=== PATIENT | female | born 1965 | race Two or more races ===

== ENCOUNTER 2019-06-14 16:47 | Emergency (ER) | payer SELFPAY ==
[~2019-06-14] VITALS: Ht 162.6 cm; Wt 104.3 kg
[~2019-06-14 16:47] MED LIST: CEFTIN500 MG ORAL; CLINDAMYCIN HC300 MG ORAL; FLOMAX0.4 MG ORAL; IBUPROFEN600 MG PO; LANTUS100 UNIT/2 SUBQ; METFORMIN HCL1000 M1 ORAL; NORCO 5-325 TA1 EACH ORAL; NORCO 5-325 TA1 EACH PO
--- NOTE | 2019-06-14 17:20 | NUR ---
ED Nurse Note: Patient walked into ED c/o left ankle pain, patient reports she accidentally fell down from a stool and injured herself on 06/12/19. at bedside
[2019-06-14] MEDS ORDERED: HYDROcodone/Acetamin 5/325 tab ORAL ONE (17:30)
--- NOTE | 2019-06-14 17:46 | Emergency Room Report ---
History of Present Illness General Chief Complaint: Lower Extremity Injury Source: Patient (Eva Painter) Present Illness HPI 54-year-old female presents to the emergency department complaining of 8 out of 10 severity pain to the left ankle and foot x2 days status post mechanical trip and fall. Patient reports that landed on her left foot and ankle in the bent position. Patient states she has been able to ambulate but with great pain. Denies any relieving factors at this time denies previous injury to the extremity denies midline neck or back pain did not hit her head or loose consciousness. (Eva Painter) Allergies: Coded Allergies: No Known Allergies (Unverified , 05/11/13) Patient History Past Medical History: see triage record Past Surgical History: none Pertinent Family History: none Last Menstrual Period: 06/07/19 Now: No Reviewed Nursing Documentation: PMH: Agreed; PSxH: Agreed (Eva Painter) Nursing Documentation-PMH Past Medical History: No History, Except For Hx Cardiac Problems: No Hx Asthma: Yes - secondary to obesity Hx Diabetes: Yes Hx Cancer: No Hx Gastrointestinal Problems: Yes Hx Neurological Problems: No (Eva Painter) Review of Systems All Other Systems: negative except mentioned in HPI (Eva Painter) Physical Exam Vital Signs Date Time Temp Pulse Resp B/P (MAP) Pulse Ox O2 Delivery O2 Flow Rate FiO2 06/14/19 16:53 98.1 84 20 156/88 (110) 99 Room Air Sp02 EP Interpretation: reviewed, normal General Appearance: no apparent distress, alert, GCS 15, non-toxic Head: normocephalic, atraumatic Eyes: bilateral eye normal inspection, bilateral eye PERRL ENT: hearing grossly normal, normal voice Neck: full range of motion Respiratory: chest non-tender, lungs clear, normal breath sounds, speaking full sentences Cardiovascular #1: regular rate, rhythm, normal capillary refill Cardiovascular #2: 2+ dorsalis pedis (R), 2+ dorsalis pedis (L) Musculoskeletal: back normal, normal range of motion, tender - lateral aspect of the left foot and ankle, swelling and bruising noted. Neurologic: alert, oriented x3, responsive, motor strength/tone normal, sensory intact, speech normal, grossly normal Psychiatric: judgement/insight normal Skin: Ecchymosis/Bruising - left foot and ankle (Eva Painter) Medical Decision Making PA Attestation Dr. Scott is my supervising Physician whom patient management has been discussed with. (Eva Painter) Diagnostic Impression: Primary Impression: Metatarsal fracture Qualified Codes: S92.352A - Displaced fracture of fifth metatarsal bone, left foot, initial encounter for closed fracture ER Course 54-year-old female presents to the emergency department complaining of 8 out of 10 severity pain to the left ankle and foot x2 days status post mechanical trip and fall. Patient reports that landed on her left foot and ankle in the bent position. Patient states she has been able to ambulate but with great pain. Denies any relieving factors at this time denies previous injury to the extremity denies midline neck or back pain did not hit her head or loose consciousness. Ddx considered but are not limited to Fracture, dislocation, contusion, Sprain/ Strain/Spasm, Vital signs: are WNL, pt. is afebrile H&PE are most consistent with musculoskeletal injury will perform imaging to r/ o fractures/dislocations. ORDERS: - X-ray Left Foot and Ankle 3 views each - POSITIVE FOR 5th METATARSAL FX. - -No Dislocation, or significant soft tissue injury, per preliminary read in ED , and signed by ARVIND Painter, my supervising physician has reviewed, and agrees with my interpretation. ED INTERVENTIONS: - Winona PO -Left Short leg Posterior Splint applied by substation technician. Pt. remains neurovascularly intact. - --Patient is provided with crutches and instructed on their use DISCHARGE: At this time pt. is stable for d/c to home. Will provide printed patient care instructions, and any necessary prescriptions. Care plan and follow up instructions have been discussed with the patient prior to discharge. (Eva Painter) Other X-Ray Diagnostic Results Other X-Ray Diagnostic Results : X-Ray ordered: Left Foot # of Views/Limited Vs Complete: 3 View Indication: Pain EP Interpretation: Yes PA Xray: Interpretation reviewed, by supervising MD, and agrees with findings. Interpretation: no dislocation, no soft tissue swelling, other - 5th metatarsal fx- mildly displaced Impression: Other - abnormal Electronically Signed by: Eva Painter PA-C (Eva Painter) Other X-Ray Diagnostic Results : Electronically Signed by: P A documentation of Xray reviewed by me and is accurate, Reza Scott MD (Reza Scott MD) Last Vital Signs Date Time Temp Pulse Resp B/P (MAP) Pulse Ox O2 Delivery O2 Flow Rate FiO2 06/14/19 16:53 98.1 84 20 156/88 (110) 99 Room Air (Eva Painter) Disposition: HOME, SELF-CARE Condition: Stable Scripts Hydrocodone Bit/Acetaminophen 5-325* (NORCO 5-325*) 1 Each Tablet 1 TAB ORAL Q6H PRN for For Pain, #12 TAB 0 Refills Prov: Eva Painter 06/14/19 Patient Instructions: Metatarsal Fracture Additional Instructions: Take medications as directed. Follow up with an DEVELOPMENT CONSULTANT in 3-5 days, even if your symptoms have resolved. If symptoms persist MRI may be required at the discretion of your PCP or Ortho Specialist. --Please review list of primary care clinics, if you do not already have a primary care provider who can give you an Orthopedic Referral. Return sooner to ED if new symptoms occur, or current symptoms become worse. Do not drink alcohol, drive, or operate heavy machinery while taking Winona as this may cause drowsiness. - Please note that this Emergency Department Report was dictated using [employer] certified powerplant mechanic technology software, occasionally this can lead to erroneous entry secondary to interpretation by the dictation equipment. Eva Painter Jun 14, 2019 17:46 Reza Scott MD Jun 16, 2019 02:21
[2019-06-14] MEDS ORDERED: NORCO 5-325 TA1 EACH ORAL (17:58)
--- NOTE | 2019-06-14 18:29 | NUR ---
ER DISCHARGE NOTE: Patient is cleared to be discharged per ARIC ZAMORA, pt is aox4, on room air, with stable vital signs. pt was given dc and prescription instructions, pt was able to verbalize understanding, pt id band removed without complications. pt is able to ambulate with steady gait. pt took all belongings.
[2019-06-14 18:31] VITALS: BP 156/88
--- NOTE | 2019-06-14 19:15 | NUR ---
ED Nurse Note: Patient called and spoke with her, letting her know that she has prescription for pain medication here at [facility]. patient stated that she will come and pick it up. Endorsed to Raymond HUMPHREY.
--- NOTE | 2019-06-15 11:59 | Diagnostic Imaging Report ---
Indication: Pain, trauma Technique: 3 views left foot Comparison: none Findings: There is a minimally displaced oblique comminuted fracture of the fifth metatarsal shaft. No other acute fractures. No dislocations. The joint spaces are preserved. There is a plantar spur noted. Impression: Positive for fifth metatarsal shaft fracture This agrees with the preliminary interpretation provided by the emergency room physician
== END 2019-06-14 18:29 | disposition home or self-care (01) ==
LOC: EMR 18:01
DX: S92.352A Displaced fracture of fifth metatarsal bone, left foot, initial encounter for closed fracture (principal); W01.0XXA Fall on same level from slipping, tripping and stumbling without subsequent striking against object, initial encounter; Y92.9 Unspecified place or not applicable; E11.9 Type 2 diabetes mellitus without complications; E66.9 Obesity, unspecified
CPT/HCPCS: 29515; 99283